=== PATIENT | female | born 1960 | race Caucasian/White ===

== ENCOUNTER 2016-07-01 15:39 | Inpatient (IN) ==
[2016-07-01 18:06] LABS: Basophils % 0.3 %; Eosinophils # 0.2 K/mcL (0.0-0.6); Eosinophils % 1.1 %; Hematocrit 43.6 % (35.3-44.9); Hemoglobin 14.1 g/dL (11.5-15.4); Immature Granulocytes % 0.4 % (0-4); Lymphocytes # 1.5 K/mcL (0.6-4.6); Lymphocytes % 10.8 %; Mean Corpuscular HGB Conc 32.3 g/dL (31.6-35.5); Mean Corpuscular Hemoglobin 31.3 pg (28.0-33.3); Mean Corpuscular Volume 96.7 fL (83.0-100.0); Mean Platelet Volume 10.5 fL (9.4-12.4); Monocytes % 7.5 %; Neutrophils # 10.8 K/mcL (1.6-8.9); Platelet Count 284 K/mcL (140-400); Red Blood Count 4.51 M/mcL (3.82-4.97); Red Cell Distribution Width 12.4 % (11.5-14.5); Segmented Neutrophils % 79.9 %
[2016-07-01 18:15] LABS: Activated Partial Thrombo Time 31.1 Seconds (26.0-36.0)
[2016-07-01 18:18] LABS: BUN/Creatinine Ratio 18 (6-26); Blood Urea Nitrogen 19 mg/dL (7-20); Calcium 9.6 mg/dL (8.6-10.8); Carbon Dioxide 25 mEq/L (19-29); Chloride 103 mEq/L (98-109); Glucose 104 mg/dL (70-99); Osmolality,Calculated 291 (280-300); Potassium 4.5 mEq/L (3.5-4.5); Sodium 139 mEq/L (136-145); eGFR For African Americans > 60 (> 60); eGFR For Non-African Americans 54 (> 60)
--- NOTE | 2016-07-01 19:45 | Emergency Department Note ---
Disposition Clinical Impression: Colitis, Hematochezia Disposition: Admitted As Inpatient Condition: Good GI Bleed HPI - General Chief complaint: ED GI Bleed Stated complaint: rectal bleeding Time Seen by Provider: 07/01/16 18:20 Source: patient, family Limitations: no limitations Nursing Notes Reviewed: Yes Vital Signs Reviewed: Yes - History of Present Illness HPI Narrative: 56-year-old female presents to the emergency department with the chief complaint of diarrhea and blood in her stool. Over the last 2 weeks she has had intermittent blood mixed with her stool. Is described as bright red. Over the last 24 hours she has had worsening of the bleeding and pain. She reports some left-sided and periumbilical abdominal discomfort. She has not had any fevers or chills. No nausea or vomiting. She had a colonoscopy about 5 years ago which showed some polyps but nothing malignant. She denies history of hemorrhoids. She has had recurrent UTIs and has been on antibiotics in the past but nothing recently. - Related Data Allergies Allergy/AdvReac Type Severity Reaction Status Date / Time bupropion [From Wellbutrin] Allergy Hives Verified 07/01/16 16:27 nitrofurantoin Allergy Hives Verified 07/01/16 16:27 [From Macrobid] imiquimod AdvReac Hives Verified 07/01/16 20:28 All systems ED: reviewed and negative except as stated. Constitutional: Denies: fever, chills Cardiovascular: Denies: chest pain Respiratory: Denies: cough, dyspnea Gastrointestinal: Reports: abdominal pain, diarrhea, hematochezia. Denies: vomiting Genitourinary: Denies: dysuria Musculoskeletal: Denies: back pain Neurological: Denies: headache Past Medical History - Past Medical History Medical history: Reports: renal disease Psychiatric history: Reports: anxiety, depression DIRECTOR INFORMATION history: Reports: no DIRECTOR INFORMATION history - Social History Smoking Status: Current every day smoker Smokeless Tobacco Status: No Alcohol use: Reports: none Drug use: Reports: none Physical Exam General: Appears well, alert and oriented x 3 Cardiovascular: Regular rate and rhythm. S1, S2. No murmurs, rubs or gallops. Respiratory: Breath sounds clear bilaterally. No wheezing, rales or rhonchi. No resp distress Abdomen: Abdomen is soft without any guarding, rebound or rigidity. She does have some left-sided tenderness without guarding. Normal bowel sounds throughout. No palpable hernias. Rectal: No bleeding externally. No hemorrhoids or fissures. Stool is brown but Hemoccult positive Eyes: conjunctiva clear HENT: No oral mucosal lesions. Moist mucous membranes Neuro: Alert and oriented 3 Musculoskeletal: No joint tenderness or swelling Skin: No lesions. No diaphoresis. Normal turgor. Normal color Psych: Appropriate - General Limitations: no limitations General appearance: alert, in no apparent distress Course Course Narrative: 56-year-old presents with lower abdominal pain and hematochezia. On exam she has some left-sided nand periumbilical discomfort, rectal exam reveals no hemorrhoids or source of bleeding and is Hemoccult positive. Her vitals have been stable and her hemoglobin is stable. Slight leukocytosis. We did do a CT scan of her abdomen, I chose to do it without contrast because she has a history of chronic renal insufficiency with previous renal stents. CT shows thickening of the colon as well as a dilated appendix without any secondary signs of appendicitis. Although clinically I feel her symptoms are due to the inflammation of the colon early appendicitis cannot be ruled out especially with her symptoms change and over the last 24 hours. We will start her on IV antibiotics and admit for colitis, serial abdominal exams and rule out early appendicitis. Patient is completely covered her with this plan. I spoke with the on-call hospitalist, Dr. Carson who accepts for admission, no further orders at this time. Vital Signs Temperature 97.9 F 07/01/16 16:27 Pulse Rate 90 07/01/16 16:27 Respiratory Rate 15 07/01/16 16:27 Blood Pressure 118/63 07/01/16 16:27 O2 Sat by Pulse Oximetry 99 07/01/16 16:27 Temperature 97.9 F 07/01/16 16:27 Pulse Rate 90 07/01/16 16:27 Respiratory Rate 15 07/01/16 16:27 Blood Pressure 118/63 07/01/16 16:27 O2 Sat by Pulse Oximetry 99 07/01/16 16:27 Oxygen Delivery Oxygen Delivery Room Air GI Bleed - Lab Data Result diagrams: 07/01/16 17:57 07/01/16 17:57 Lab Results 07/01/16 07/01/16 07/01/16 Range/Units 17:57 17:57 17:57 WBC 13.5 H (4.3-11.1) K/mcL RBC 4.51 (3.82-4.97) M/mcL Hgb 14.1 (11.5-15.4) g/dL Hct 43.6 (35.3-44.9) % MCV 96.7 (83.0-100.0) fL MCH 31.3 (28.0-33.3) pg MCHC 32.3 (31.6-35.5) g/dL RDW 12.4 (11.5-14.5) % Plt Count 284 (140-400) K/mcL MPV 10.5 (9.4-12.4) fL Immature Gran % 0.4 (0-4) % Seg Neutrophils % 79.9 % Lymphocytes % 10.8 % Monocytes % 7.5 % Eosinophils % 1.1 % Basophils % 0.3 % Neutrophils # 10.8 H (1.6-8.9) K/mcL Lymphocytes # 1.5 (0.6-4.6) K/mcL Monocytes # 1.0 (0.0-1.3) K/mcL Eosinophils # 0.2 (0.0-0.6) K/mcL Basophils # 0.0 (0.0-0.2) K/mcL PT 11.0 (9.4-12.1) Seconds INR 1.0 APTT 31.1 (26.0-36.0) Seconds Sodium 139 (136-145) mEq/L Potassium 4.5 (3.5-4.5) mEq/L Chloride 103 (98-109) mEq/L Carbon Dioxide 25 (19-29) mEq/L BUN 19 (7-20) mg/dL Creatinine 1.06 (0.57-1.11) mg/dL Est GFR ( Amer) > 60 (> 60) Est GFR (Non-Af Amer) 54 L (> 60) BUN/Creatinine Ratio 18 (6-26) Glucose 104 H (70-99) mg/dL Calculated Osmolality 291 (280-300) Calcium 9.6 (8.6-10.8) mg/dL Blood Type Antibody Screen 07/01/16 Range/Units 17:57 WBC (4.3-11.1) K/mcL RBC (3.82-4.97) M/mcL Hgb (11.5-15.4) g/dL Hct (35.3-44.9) % MCV (83.0-100.0) fL MCH (28.0-33.3) pg MCHC (31.6-35.5) g/dL RDW (11.5-14.5) % Plt Count (140-400) K/mcL MPV (9.4-12.4) fL Immature Gran % (0-4) % Seg Neutrophils % % Lymphocytes % % Monocytes % % Eosinophils % % Basophils % % Neutrophils # (1.6-8.9) K/mcL Lymphocytes # (0.6-4.6) K/mcL Monocytes # (0.0-1.3) K/mcL Eosinophils # (0.0-0.6) K/mcL Basophils # (0.0-0.2) K/mcL PT (9.4-12.1) Seconds INR APTT (26.0-36.0) Seconds Sodium (136-145) mEq/L Potassium (3.5-4.5) mEq/L Chloride (98-109) mEq/L Carbon Dioxide (19-29) mEq/L BUN (7-20) mg/dL Creatinine (0.57-1.11) mg/dL Est GFR ( Amer) (> 60) Est GFR (Non-Af Amer) (> 60) BUN/Creatinine Ratio (6-26) Glucose (70-99) mg/dL Calculated Osmolality (280-300) Calcium (8.6-10.8) mg/dL Blood Type O POSITIVE Antibody Screen NEGATIVE Attestation Statement - Attestation Attestation: Patient was seen with resident physician. I reviewed the history, physical, assessment and plan, and agree with the findings. I also personally evaluated this patient and had [id number] time with this patient. 56-year-old female comes into the emergency department with lower abdominal discomfort and rectal bleeding. Symptoms have been getting worse over the last 24-48 hours which prompted her visit. Pain is gotten worse as well. Denies fevers. No nausea or vomiting. She states she has had a change in her bowel movements but was nonspecific in terms of diarrhea or solid. She said the quality and textures changed recently. She notes that she has been on a lot of antibiotics recently as well. On examination ENT is unremarkable. Heart and lungs are normal. Abdomen is soft there is tenderness in the lower left quadrant especially. And some diffuse tenderness along the lower abdomen. There is no guarding rigidity. Extremities are unremarkable. Neurologically the patient's intact. Laboratory data revealed an elevated white blood cell count a CT scan of the abdomen and pelvis revealed inflammation of the colon and possible early appendicitis with inflammation there as well. Contacted the hospitalist service will start patient on antibiotics, and have her admitted for serial abdominal exams and repeat testing. Also possible surgical consultation which began on the floor. Patient hemodynamically was stable for admission. I agree with the resident physician assessment and plan.
[2016-07-01] MEDS ORDERED: MetroNIDAZOLE 500 MG/100 ML 500 MG/100 ML BAG IVPB ONE (20:36)
--- NOTE | 2016-07-01 23:39 | Internal Med History&Physical ---
Date of Encounter: 07/02/16 Time of Encounter: 23:36 Assessment and Plan (1) Colitis Current visit: Yes Status: Acute Likely infectious in nature given findings on CT and leukocytosis Will start patient on Ciprofloxacin and Flagyl Support patient on maintenance fluids, anti-emetics, and clear liquids C. diff toxin has been ordered May benefit from outpatient colonoscopy (2) Hematochezia Current visit: Yes Status: Acute Likely from colitis vs. underlying diverticular bleed Patient already typed and crossed, but on acute indication for transfusion given Hb of 14.1 upon admission Will recheck Hb in morning and monitor for additional episodes of bleeding from stool or urine (3) Abnormal CT of the abdomen Current visit: Yes Status: Acute CT confirmed colitis of descending colon which patient is symptomatic from, however also demonstrated possible early appendicitis Likely reactive inflammation, but given distention of appendix, cannot rule out mass effect; will consult surgery for further recommendations (4) CKD (chronic kidney disease) stage 3, GFR 30-59 ml/min Current visit: Yes Status: Chronic Stable, Cr currently 1.06 and at baseline Will hydrate with maintenance fluids at 80 ml/hr Avoid nephrotoxic agents and continue home nutrient replacements (5) DVT prophylaxis Current visit: Yes Status: Acute SCDs in setting of lower GI bleed Internal Medicine - H&P: HPI Chief complaint: rectal bleed Admitted From: Home Plans for Post Hospital Care: Home History of present illness: Ms. Torres is a 56 year old female who presents to emergency department with rectal bleeding. She states she first noticed bright red per rectum about 2 weeks ago. At first it was a very mild amount and she only noticed it intermittently when she was wiping. However since this morning, she has been having much more blood that she has noticed around the toilet and more while wiping. She describes having roughly 12 movements today and they were watery and red. She describes lower sided abdominal pain that occurs with or without food. Denies any nausea, vomiting, or blood in her urine. She has no history of easy bleeding or clotting, and has no abdominal surgeries in the past. She claims her last colonoscopy was 5 years ago and showed a benign polyp. Her diet usually consists of high sugars, and she states her appetite has been decreased over the past day. Past Med Surg Social Fam HX - Past Medical History Medical history: renal disease Psychiatric history: anxiety, depression - Social History Smoking Status: Current every day smoker Packs per day: 1 Smokeless Tobacco Status: No Alcohol use: none Drug use: none - Family History Mother Hx Family Cardiac Disorders: Yes (htn) Grandfather Cause of : cancer Internal Medicine - H&P: Meds Cholecalciferol (Vitamin D3) [Vitamin D] 2,000 unit PO MOWEFR 07/01/16 [History] Cranberry Fruit Concentrate [Cranberry] 450 mg PO TID 07/01/16 [History] Ferrous Sulfate 325 mg PO DAILY 07/01/16 [History] Fluticasone Propionate Nasal [Flonase] 50 mcg NS DAILY 07/01/16 [History] Lay Root 550 mg PO BID 07/01/16 [History] Glucosamine/D3/Boswellia Fallon [Osteo Bi-Flex Tablet] 1 each PO DAILY 07/01/16 [ History] HYDROcodone/Acet 5/325 mg [[place] 5-325 mg] 1 tab PO HS 07/01/16 [History] LORazepam [Ativan] 0.5 mg PO BID 07/01/16 [History] Magnesium 250 mg PO QID 07/01/16 [History] Meclizine HCl [Verticalm] 25 mg PO Q6H PRN 07/01/16 [History] Metaxalone [Metaxall] 800 mg PO HS 07/01/16 [History] Multivitamin [Multi-Day Vitamins] 1 each PO DAILY 07/01/16 [History] Pseudoephedrine HCl [Pseudoephedrine ER] 120 mg PO Q12H 07/01/16 [History] Allergies bupropion [From Wellbutrin] Allergy (Verified 07/01/16 16:27) Hives nitrofurantoin [From Macrobid] Allergy (Verified 07/01/16 16:27) Hives imiquimod Adverse Reaction (Verified 07/01/16 20:28) Hives All Systems PM: A 10-system review of systems was performed and is negative for pertinent findings except as documented above in the HPI. - Constitutional Constitutional: no chills, no fever(s), no night sweats - EENT Eyes: no change in vision, no discharge, no pain, no photophobia Ears: no ear discharge, no ear pain, no tinnitus Nose, mouth and throat: no dysphagia, no nasal discharge, no neck pain, no sore throat - Cardiovascular Cardiovascular ROS IM: no chest pain, no diaphoresis, no dyspnea, no lightheadedness, no palpitations, no syncope - Respiratory Respiratory: no cough, no dyspnea, no wheezing, no excessive phlegm production - Gastrointestinal Gastrointestinal: abdominal pain, cramping, diarrhea, hematochezia, no hematemesis, no melena, no nausea, no vomiting - Genitourinary Genitourinary: no change in urinary stream, no dysuria, no flank pain, no hematuria - Musculoskeletal Musculoskeletal ROS IM: no numbness, no tingling - Integumentary Integumentary IM: no rash, no unusual bruising - Neurological Neurological ROS: no confusion, no convulsions, no focal weakness, no numbness, no tingling, no tremor(s) - Hematologic/Lymphatic Hematologic/Lymphatic: no easy bruising - Constitutional Vitals: Temp Pulse Resp BP Pulse Ox 97.8 F 90 16 134/74 97 07/01/16 22:08 07/01/16 22:08 07/01/16 22:08 07/01/16 22:08 07/01/16 22:08 General appearance: Present: cooperative, pleasant, no acute distress, answers questions appropriately - Head Head exam: Present: atraumatic, normocephalic - Eye Eye exam: Present: PERRL, conjuntiva pink, sclera anicteric - Neck Neck exam general surgery: Present: supple, trachea midline. Absent: lymphadenopathy - Respiratory Respiratory exam: Present: CTAB. Absent: accessory muscle use, rales, rhonchi, wheezes - Cardiovascular Cardiovascular exam: Present: RRR, +S1, +S2. Absent: diastolic murmur, gallop, rubs, systolic murmur - GI/Abdominal GI/Abdominal exam: Present: normal bowel sounds, soft, tenderness (LLQ), no peritoneal signs. Absent: distended, firm, guarding, hernia, rigid - Extremities Exam Extremities exam: Present: warm, radial pulses palpable and symetrical. Absent : calf tenderness, cyanotic, pedal edema - Neurological Exam Neurological exam: Present: alert, no focal deficits. Absent: facial droop, speech deficit - Skin Skin exam: Present: dry, intact Internal Med - H&P Results - Labs CBC & Chem 7: 07/01/16 17:57 07/01/16 17:57
--- NOTE | 2016-07-01 23:59 | Event Note ---
Date of Encounter: 07/02/16 Time of Encounter: 23:30 I agree essentially with the assessment and plan of Resident, case discussed, plan agreed upon. The patient was evaluated at bedside. Moist mucosa. Abdomen is soft, tender on deep palpation in the LLQ. BS+, no masses. I reviewed labs and images. no significant diverticulosis. Findings favor protocolitis with lower GI bleeding. Patient appears to have internal hemorrhoids, aggravated by diarrhea related to proctocolitis. I am not sure what to make of appendiceal finding on CT. nO EVIDENCE FOR ACUTE INFLAMMATION. History and clinical exam does not favor appendicitis. Obtain surgical opinion, cannot exclude occult appendiceal tumor or lymphoid hyperplasia.
[2016-07-02] MEDS ORDERED: Ondansetron ODT 4 MG TAB.RAPDIS SL PRN (00:02)
[2016-07-02] MEDS ORDERED: Naloxone 0.4 MG/ML INJ IVP PRN (00:02)
[2016-07-02] MEDS: 0.9 % Sodium Chloride 1,000 ML IVC SCH ×2 (05:02→20:01)
--- NOTE | 2016-07-02 07:54 | Internal Med Progress Note ---
Date of Encounter: 07/02/16 - Constitutional Vitals: Temp Pulse Resp BP Pulse Ox 97.9 F 71 18 126/73 98 07/02/16 07:07 07/02/16 07:07 07/02/16 07:07 07/02/16 07:07 07/02/16 07:07 General appearance: Present: cooperative, pleasant, no acute distress, answers questions appropriately Internal Medicine: Result - Labs CBC & Chem 7: 07/01/16 17:57 07/01/16 17:57 - ABG Interpretation ABG results: PT/INR, D-dimer PT 11.0 Seconds (9.4-12.1) 07/01/16 17:57 - VTE Reasons for not Prescribing Prophylaxis: Medical contraindication Consult Discharge Plan - Plan Referrals: Josh Bueno DO [Primary Care Provider] -
[2016-07-02 08:24] LABS: Basophils % 0.4 %; Eosinophils # 0.3 K/mcL (0.0-0.6); Eosinophils % 3.6 %; Hemoglobin 13.1 g/dL (11.5-15.4); Immature Granulocytes % 0.3 % (0-4); Lymphocytes # 2.1 K/mcL (0.6-4.6); Lymphocytes % 29.8 %; Mean Corpuscular HGB Conc 32.8 g/dL (31.6-35.5); Mean Corpuscular Hemoglobin 31.3 pg (28.0-33.3); Mean Corpuscular Volume 95.5 fL (83.0-100.0); Mean Platelet Volume 10.8 fL (9.4-12.4); Monocytes # 0.6 K/mcL (0.0-1.3); Monocytes % 8.7 %; Neutrophils # 3.9 K/mcL (1.6-8.9); Platelet Count 271 K/mcL (140-400); Red Blood Count 4.19 M/mcL (3.82-4.97); Red Cell Distribution Width 12.6 % (11.5-14.5); Segmented Neutrophils % 57.2 %
[2016-07-02 08:29] LABS: Alanine Aminotransferase 35 Units/L (0-55); Albumin/Globulin Ratio 0.9 (1.1-2.2); Alkaline Phosphatase 97 Units/L (38-126); Aspartate Amino Transferase 27 Units/L (5-34); BUN/Creatinine Ratio 16 (6-26); Bilirubin,Total 0.2 mg/dL (0.2-1.2); Blood Urea Nitrogen 16 mg/dL (7-20); Calcium 8.7 mg/dL (8.6-10.8); Carbon Dioxide 26 mEq/L (19-29); Chloride 103 mEq/L (98-109); Globulin 3.2 g/dL (2.4-3.5); Glucose 121 mg/dL (70-99); Osmolality,Calculated 288 (280-300); Potassium 3.9 mEq/L (3.5-4.5); Sodium 138 mEq/L (136-145); Total Protein 6.2 g/dL (6.0-8.3); eGFR For African Americans > 60 (> 60); eGFR For Non-African Americans 57 (> 60)
[2016-07-02] MEDS ORDERED: Pantoprazole 40 MG VIAL IVP SCH (09:00)
[2016-07-02] MEDS: Magnesium Oxide 400 MG TABLET PO SCH ×4 (09:36→20:03)
[2016-07-02] MEDS: *HR* LORazepam 0.5 MG TABLET PO SCH ×2 (09:36→20:03)
[2016-07-02] MEDS: Fluticasone Propionate Nasal 50 MCG/SPRAY BOTTLE NS SCH (09:36)
[2016-07-02] MEDS: Nicotine 14 MG PATCH.TD24 TD SCH (09:36)
[2016-07-02] MEDS: Vancomycin Oral Soln 250 MG/2.5 ML UDC PO SCH ×4 (11:17→20:02)
--- NOTE | 2016-07-02 13:56 | Electrocardiograph Report ---
[address] [address] Test Date: 2016-07-01 Pat Name: Samantha Torres Department: 102 Room: 3A44 Gender: F [employer] Manager: : [id number] Requested By: Kim See Order Number: [id number] Reading MD: Oz Foster Measurements Intervals Lillie Rate: 80 P: 80 NV: 147 QRS: -43 QRSD: 84 T: 77 QT: 378 QTc: 414 Interpretive Statements SINUS RHYTHM INDETERMINATE AXIS Electronically Signed On 07-02-2016 13:55:44 EST by Oz Foster
[2016-07-02] MEDS: MetroNIDAZOLE 500 MG/100 ML 500 MG/100 ML BAG IVPB SCH ×2 (14:01→20:02)
[2016-07-02] MEDS ORDERED: MetroNIDAZOLE 500 MG/100 ML 500 MG/100 ML BAG IVPB SCH (16:00)
[2016-07-02] MEDS: Famotidine 20 MG/2 ML VIAL IVP SCH (16:43)
[2016-07-02] MEDS ORDERED: Acetaminophen 325 MG TABLET PO ONE (19:35)
[2016-07-03] MEDS: MetroNIDAZOLE 500 MG/100 ML 500 MG/100 ML BAG IVPB SCH ×3 (03:11→20:09)
[2016-07-03] MEDS: *HR* HYDROcodone/Acet 5/325 mg TABLET PO PRN (03:13)
[2016-07-03] MEDS: Famotidine 20 MG/2 ML VIAL IVP SCH ×2 (05:23→18:41)
[2016-07-03] MEDS: Vancomycin Oral Soln 250 MG/2.5 ML UDC PO SCH ×4 (09:54→21:51)
[2016-07-03] MEDS: Magnesium Oxide 400 MG TABLET PO SCH ×4 (09:56→20:22)
[2016-07-03] MEDS: Fluticasone Propionate Nasal 50 MCG/SPRAY BOTTLE NS SCH (09:56)
[2016-07-03] MEDS: Nicotine 14 MG PATCH.TD24 TD SCH (09:56)
[2016-07-03] MEDS: *HR* LORazepam 0.5 MG TABLET PO SCH ×2 (09:56→20:22)
[2016-07-03] MEDS: 0.9 % Sodium Chloride 1,000 ML IVC SCH ×2 (09:57→18:40)
[2016-07-03 10:53] LABS: Basophils % 0.4 %; Eosinophils # 0.2 K/mcL (0.0-0.6); Eosinophils % 2.9 %; Hemoglobin 12.7 g/dL (11.5-15.4); Immature Granulocytes % 0.1 % (0-4); Lymphocytes # 1.3 K/mcL (0.6-4.6); Lymphocytes % 18.8 %; Mean Corpuscular HGB Conc 32.6 g/dL (31.6-35.5); Mean Corpuscular Hemoglobin 31.9 pg (28.0-33.3); Mean Platelet Volume 10.6 fL (9.4-12.4); Monocytes # 0.5 K/mcL (0.0-1.3); Monocytes % 6.9 %; Neutrophils # 4.9 K/mcL (1.6-8.9); Platelet Count 252 K/mcL (140-400); Red Blood Count 3.98 M/mcL (3.82-4.97); Red Cell Distribution Width 12.7 % (11.5-14.5); Segmented Neutrophils % 70.9 %
[2016-07-03 11:05] LABS: BUN/Creatinine Ratio 10 (6-26); Blood Urea Nitrogen 9 mg/dL (7-20); Calcium 8.9 mg/dL (8.6-10.8); Carbon Dioxide 24 mEq/L (19-29); Chloride 110 mEq/L (98-109); Glucose 103 mg/dL (70-99); Osmolality,Calculated 293 (280-300); Sodium 142 mEq/L (136-145); eGFR For African Americans > 60 (> 60); eGFR For Non-African Americans > 60 (> 60)
--- NOTE | 2016-07-03 14:08 | Internal Med Progress Note ---
Date of Encounter: 07/03/16 Time of Encounter: 14:05 - Assessment and plan (1) Colitis Current Visit: Yes Status: Acute Assessment and plan: CT showed colitis, positive for c. diff/ will continue vanco oral and flagyl for now. had leucocytosis and has stool occult positive will advance diet gradually, keep IVf, analgesics and anti emetics prn. (2) DVT prophylaxis Current Visit: Yes Status: Acute (3) CKD (chronic kidney disease) stage 3, GFR 30-59 ml/min Current Visit: Yes Status: Chronic Assessment and plan: stable - Time Spent With Patient 25 - 35 minutes - Subjective Interval history: seen at the bedside, reports that she has diarrhea still. no n/v/f reports that she was on augmentin for sinus problems. - Constitutional Vitals: Temp Pulse Resp BP Pulse Ox 98.2 F 51 14 128/80 97 07/03/16 10:15 07/03/16 10:15 07/03/16 10:15 07/03/16 10:15 07/03/16 10:15 General appearance: Present: cooperative, A&O X 3, pleasant, no acute distress, answers questions appropriately Exam: Head Head exam: Present: atraumatic, normocephalic - Eye Eye exam: Present: PERRL, conjuntiva pink, sclera anicteric - Neck Neck exam general surgery: Present: supple, trachea midline. Absent: lymphadenopathy - Respiratory Respiratory exam: Present: CTAB. Absent: accessory muscle use, rales, rhonchi, wheezes - Cardiovascular Cardiovascular exam: Present: RRR, +S1, +S2. Absent: diastolic murmur, gallop, rubs, systolic murmur - GI/Abdominal GI/Abdominal exam: Present: normal bowel sounds, soft, non tender, no peritoneal signs. Absent: distended, firm, guarding, hernia, rigid - Extremities Exam Extremities exam: Present: warm, radial pulses palpable and symetrical. Absent : calf tenderness, cyanotic, pedal edema - Neurological Exam Neurological exam: Present: alert, no focal deficits. Absent: facial droop, speech deficit - Skin Skin exam: Present: dry, intact Internal Medicine: Result - Labs CBC & Chem 7: 07/03/16 10:24 07/03/16 10:24 Labs: Short CBC 07/03/16 Range/Units 10:24 WBC 7.0 (4.3-11.1) K/mcL Hgb 12.7 (11.5-15.4) g/dL Hct 39.0 (35.3-44.9) % Plt Count 252 (140-400) K/mcL Neutrophils # 4.9 (1.6-8.9) K/mcL BMP 07/03/16 10:24 Sodium 142 Potassium 4.0 Chloride 110 H Carbon Dioxide 24 BUN 9 Creatinine 0.92 Glucose 103 H Calcium 8.9 - ABG Interpretation ABG results: PT/INR, D-dimer PT 11.0 Seconds (9.4-12.1) 07/01/16 17:57 - VTE Reasons for not Prescribing Prophylaxis: Medical contraindication Consult Discharge Plan - Plan Referrals: Josh Bueno DO [Primary Care Provider] -
[2016-07-03] MEDS: *HR* Heparin 5,000 UNIT/ML VIAL SQ SCH (20:03)
[2016-07-04] MEDS: MetroNIDAZOLE 500 MG/100 ML 500 MG/100 ML BAG IVPB SCH ×2 (03:30→12:55)
[2016-07-04] MEDS: *HR* Heparin 5,000 UNIT/ML VIAL SQ SCH (04:39)
[2016-07-04] MEDS: Famotidine 20 MG/2 ML VIAL IVP SCH (04:39)
[2016-07-04] MEDS: *HR* LORazepam 0.5 MG TABLET PO SCH (09:10)
[2016-07-04] MEDS: Magnesium Oxide 400 MG TABLET PO SCH ×2 (09:10→12:56)
[2016-07-04] MEDS: Fluticasone Propionate Nasal 50 MCG/SPRAY BOTTLE NS SCH (09:10)
[2016-07-04] MEDS: Vancomycin Oral Soln 250 MG/2.5 ML UDC PO SCH ×2 (09:10→12:54)
[2016-07-04] MEDS: Nicotine 14 MG PATCH.TD24 TD SCH (09:11)
[2016-07-04] MEDS: *HR* HYDROcodone/Acet 5/325 mg TABLET PO PRN (09:23)
[2016-07-04 10:43] LABS: Basophils % 0.4 %; Eosinophils # 0.2 K/mcL (0.0-0.6); Eosinophils % 2.6 %; Hematocrit 39.8 % (35.3-44.9); Hemoglobin 13.1 g/dL (11.5-15.4); Immature Granulocytes % 0.3 % (0-4); Lymphocytes # 1.5 K/mcL (0.6-4.6); Lymphocytes % 20.8 %; Mean Corpuscular HGB Conc 32.9 g/dL (31.6-35.5); Mean Corpuscular Hemoglobin 31.3 pg (28.0-33.3); Mean Platelet Volume 10.4 fL (9.4-12.4); Monocytes # 0.5 K/mcL (0.0-1.3); Monocytes % 6.3 %; Neutrophils # 5.1 K/mcL (1.6-8.9); Platelet Count 272 K/mcL (140-400); Red Blood Count 4.19 M/mcL (3.82-4.97); Red Cell Distribution Width 12.4 % (11.5-14.5); Segmented Neutrophils % 69.6 %
[2016-07-04 10:58] LABS: BUN/Creatinine Ratio 7 (6-26); Blood Urea Nitrogen 7 mg/dL (7-20); Carbon Dioxide 28 mEq/L (19-29); Chloride 107 mEq/L (98-109); Glucose 98 mg/dL (70-99); Osmolality,Calculated 294 (280-300); Sodium 143 mEq/L (136-145); eGFR For African Americans > 60 (> 60); eGFR For Non-African Americans > 60 (> 60)
[2016-07-04 11:35] VITALS: BP 123/73
--- NOTE | 2016-07-04 12:58 | Discharge Summary ---
Date of Encounter: 07/04/16 Time of Encounter: 12:55 - Discharge Diagnosis (1) Colitis Priority: Primary Status: Acute (2) DVT prophylaxis Priority: Secondary Status: Acute (3) CKD (chronic kidney disease) stage 3, GFR 30-59 ml/min Priority: Secondary Status: Chronic - Discharge Medications Prescriptions: MetroNIDAZOLE [Flagyl] 500 mg PO TID #33 tablet Home Medications: Cholecalciferol (Vitamin D3) [Vitamin D3] 2,000 unit PO MOWEFR 07/01/16 [History ] Cranberry Fruit Concentrate [Cranberry] 450 mg PO TID 07/01/16 [History] Ferrous Sulfate 325 mg PO DAILY 07/01/16 [History] Fluticasone Propionate Nasal [Flonase] 50 mcg NS DAILY 07/01/16 [History] Lay [place] 550 mg PO BID 07/01/16 [History] Glucosamine/D3/Boswellia [place] [Osteo Bi-Flex Tablet] 1 each PO DAILY 07/01/16 [ History] HYDROcodone/Acet 5/325 mg [[place] 5-325 mg] 1 tab PO HS 07/01/16 [History] LORazepam [Ativan] 0.5 mg PO BID 07/01/16 [History] Magnesium 250 mg PO QID 07/01/16 [History] Meclizine HCl [Verticalm] 25 mg PO Q6H PRN 07/01/16 [History] Metaxalone [Metaxall] 800 mg PO HS 07/01/16 [History] Multivitamin [Multi-Day Vitamins] 1 each PO DAILY 07/01/16 [History] Pseudoephedrine HCl [Pseudoephedrine ER] 120 mg PO Q12H 07/01/16 [History] MetroNIDAZOLE [Flagyl] 500 mg PO TID #33 tablet 07/04/16 [Rx] Allergies/Adverse Reactions: Allergies bupropion [From Wellbutrin] Allergy (Verified 07/01/16 16:27) Hives nitrofurantoin [From Macrobid] Allergy (Verified 07/01/16 16:27) Hives imiquimod Adverse Reaction (Verified 07/01/16 20:28) Hives Date of admission: 07/01/16 23:53 Primary care physician: Brenton Dwyer Discharging clinician: Josephine Prabhakar Anticipated date of discharge: 07/04/16 - Patient Status Disposition: Home, Self-Care Condition: Good Functional capacity at discharge: independent ambulation Overall status at discharge: patient is back to baseline - Discharge Instructions Follow Up With: Josh Bueno DO [Primary Care Provider] - 07/09/16 1:45 pm - Diet and Activity Activity: resume usual activities as tolerated Diet: advance to your usual diet Interval History: Ms. Torres is a 56 year old female who presents to emergency department with rectal bleeding. She states she first noticed bright red per rectum about 2 weeks ago. At first it was a very mild amount and she only noticed it intermittently when she was wiping. She describes lower sided abdominal pain that occurs with or without food. Denies any nausea, vomiting, or blood in her urine. She has no history of easy bleeding or clotting, and has no abdominal surgeries in the past. She claims her last colonoscopy was 5 years ago and showed a benign polyp. Her diet usually consists of high sugars, and she states her appetite has been decreased over the past day. CT confirmed colitis of descending colon and stool was positive for c. diff she was treated with vanco and flagyl. CT abd also showed mild distension and mild thickening of the appendix with no fluid collection. findings may be reactive 2/2 inflammatory changes in the colon. she imporved clinically with IVF and conservative mx. her abdominal pain subsided and she tolerated oral diet without any worsening abdominal pain or n/v. her diarrhea has subsided. she has mild c. diff colitis as she has no leucocytosis or fever or any evidence of organ dysfunction. she is being dc today in stable condition with oral flagyl to continue for total of 14 days. she was instructed to come back if worsening pain abdomen, nausea or vomiting. Hospital course: Ms. Torres is a 56 year old female Time spent discussing smoking cessation with patient: more than 10 minutes - Time Spent with Patient Total time spent providing and/or coordinating discharge services: Greater than 30 minutes - Constitutional Vitals: Temp Pulse Resp BP Pulse Ox 97.7 F 61 16 123/73 98 07/04/16 11:35 07/04/16 11:35 07/04/16 11:35 07/04/16 11:35 07/04/16 11:35 General appearance: Present: cooperative, A&O X 3, pleasant, no acute distress, answers questions appropriately Exam: - Head Head exam: Present: atraumatic, normocephalic - Eye Eye exam: Present: PERRL, conjuntiva pink, sclera anicteric - Neck Neck exam general surgery: Present: supple, trachea midline. Absent: lymphadenopathy - Respiratory Respiratory exam: Present: CTAB. Absent: accessory muscle use, rales, rhonchi, wheezes - Cardiovascular Cardiovascular exam: Present: RRR, +S1, +S2. Absent: diastolic murmur, gallop, rubs, systolic murmur - GI/Abdominal GI/Abdominal exam: Present: normal bowel sounds, soft, non tender, no peritoneal signs. Absent: distended, firm, guarding, hernia, rigid - Extremities Exam Extremities exam: Present: warm, radial pulses palpable and symetrical. Absent : calf tenderness, cyanotic, pedal edema - Neurological Exam Neurological exam: Present: alert, no focal deficits. Absent: facial droop, speech deficit - Skin Skin exam: Present: dry, intact - VTE Reasons for not Prescribing Prophylaxis: Medical contraindication
== END 2016-07-04 14:22 | disposition home or self-care (01) | DRG 373 ==
LOC: 3ANU 15:39 → EMEROO 15:39 → 3ANU 21:16
PROVIDERS: ADMIT Family Medicine; ATTEND Internal Medicine Endocrinology, Diabetes & Metabolism